=== PATIENT | female | born 1990 | race Caucasian/White ===

== ENCOUNTER 2016-09-02 18:36 | Emergency (ER) | payer SELFPAY ==
[~2016-09-02] VITALS: Ht 157.5 cm; Wt 48.4 kg
[2016-09-02] MEDS ORDERED: PLEASE ENTER ALLERGIES MC SCH ×2 (19:00)
[2016-09-02] MEDS ORDERED: SODIUM CHLORIDE 0.9% 1,000ML IVBOLUS ONE (19:00)
[2016-09-02 19:35] LABS: ASPARTATE AMINO TRANSFERASE 14 U/L (15-37); BLOOD UREA NITROGEN 9 mg/dL (7-18)
[2016-09-02 20:52] VITALS: BP 103/63
== END 2016-09-02 20:54 | disposition home or self-care (01) ==
LOC: ED 20:48
DX: G89.29 Other chronic pain (principal); R10.84 Generalized abdominal pain
CPT/HCPCS: 36415; 80053; 84703; 85025; 96360; 96361; 99285; J7030